=== PATIENT | male | born 1960 | race Caucasian/White ===

== ENCOUNTER 2019-09-16 08:36 | Inpatient (IN) | payer BC ==
[~2019-09-16] VITALS: Ht 167.6 cm; Wt 78.5 kg
[2019-09-16 08:42] VITALS: Ht 167.6 cm; Wt 78.5 kg
--- NOTE | 2019-09-16 08:47 | NUR ---
AOX4, SPEECH CLEAR AND APPROP. BREATHING E/U. RESTING IN BED, NAD. AT BEDSIDE. C/O DIARRHEA X 2 WEEKS. REPORTS HAVING VISITED [place] 1 WEEK AGO WELL. RECEIVED IM CEFTRIAXONE AND RECEIVED AN ORAL ABX (TREDA) WHICH HE HAS BEEN TAKING FOR 3 DAYS, LAST DOSE THIS MORNING AT 6AM. ALSO C/O 8/10 [place] LLQ PAIN TO PALPATION WORSENING X 3 DAYS. DENIES COLONOSCOPY IN LAST 10 YEARS, REPORTS STRONG HX OF COLON CA. DENIES GI BLEED. REPORTS SOME PAIN WITH BM.
--- NOTE | 2019-09-16 09:44 | NUR ---
20 GA IV PLACED TO L AC. 1L NS BOLUS INFUSING. MEDICATED PER ORDERS.
[2019-09-16 09:47] LABS: BASOPHIL % 0.5 % (0-2); PLATELET COUNT 268 x10^3mcL (130-400); RED CELL DISTRIBUTION WIDTH 12.4 % (11.5-14.5)
--- NOTE | 2019-09-16 09:53 | NUR ---
EN ROUTE TO CT.
--- NOTE | 2019-09-16 10:05 | NUR ---
BACK FROM CT.
[2019-09-16 10:35] LABS: CALCIUM 8.1 mg/dL (8.5-10.1); CARBON DIOXIDE 28.6 mmol/L (21-32); CHLORIDE SERUM 100 mmol/L (98-107); GFR1 > 60 mL/min; GLUCOSE SERUM 86 mg/dL (74-106); POTASSIUM SERUM 4.1 mmol/L (3.5-5.1); SODIUM SERUM 138 mmol/L (136-145)
[2019-09-16 10:38] LABS: ALBUMIN 3.4 g/dL (3.4-5.0); ALKALINE PHOSPHATASE 80 U/L (46-116); ALT/SGPT 35 U/L (16-63); AMYLASE 57 U/L (25-115); AST/SGOT 24 U/L (15-37); BILIRUBIN TOTAL 0.4 mg/dL (0.20-1.00); LIPASE 162 IU/L (73-393); TOTAL PROTEIN, SERUM 6.5 g/dL (6.4-8.2)
--- NOTE | 2019-09-16 11:45 | NUR ---
, ANGEL, REQUESTING THAT GI CONTACT HER WITH UPDATES AFTER SEEING PT.
--- NOTE | 2019-09-16 11:55 | NUR ---
RESTING COMFORTABLY IN BED AT THIS TIME.
--- NOTE | 2019-09-16 14:06 | NUR ---
I CALLED REPORT TO TONY SHE IS THE ACCEPTING NURSE UPSTAIRS, JERMAIN WILL TAKE PT UPSTAIRS VIA [facility]. PT IS A/AX4
--- NOTE | 2019-09-16 14:20 | NUR ---
RECEIVED PATIENT FROM ED AT 1402. PATIENT IS ALERT AND ORIENTED X4. NO ACUTE RESPIRATORY DISTRESS NOTED. NO COMPLAINTS OF CHEST PAIN. LOWER LEFT QUADRANT PAIN WHEN PRESSED OR PALPATED. NO SKIN ISSUES OR WOUNDS NOTED. IV INTACT AND PATENT TO LEFT AC. RADIAL AND PEDAL PULSES ARE EQUAL AND REGULAR. NO EDEMA NOTED. PATIENT IS COMFORTABLE. CALL LIGHT WITHIN REACH. ENCOURAGED TO URINATE IN THE URINAL FOR URINE CULTURE, WELL OBTAIN STOOL SAMPLE FOR LAB CULTURE. WILL CONTINUE TO MONITOR.
--- NOTE | 2019-09-16 15:15 | NUR ---
RECEIVED PATIENT WITH INTERMITTANT PAIN OT EH ABDOMEN. PATIENT HAS HAD DIARRHEA FOR ABOUT A MONTH ONAD OR OFF. TOLERATED OOB AND NO FEVER NOTED. THE LULY SOUND ARE ACTIVE AND PATEITN HAS CLEAR BUT DIMINIHSED BREATH SOUNDS. PATIEN HAS BEEN WITH VITALS STABLE AT 97.7, 56, 17, 111/75, 97 ON ROOM AIR. AT THIS TIME HE HAS NO ACUTE PAIN. HE RECEIVED BOLUS IN THE ER AND AN ORDER FOR TORDOL 30MG IV FOR PAIN.
[2019-09-16 15:57] VITALS: BP 111/75
--- NOTE | 2019-09-16 17:06 | NUR ---
PATIENT STATED HEADACHE AT THE BACK OF HEAD 7/10 PAIN. REQUESTED PAIN MEDICATION. TORADOL 15MG IVP GIVEN. WILL REASSESS PATIENT IN 30 MINUTES.
--- NOTE | 2019-09-16 17:11 | NUR ---
PATIENT IS REQUESINT FLU VACINE. HE DOES NOT MEET CRITERIA FO THE PNEUMOVAX. PATIENT HAS NOW COMPLAINED OF HEADACHE AND OFFERED TORADOL. LUNGS ARE CLEAR AND PATIENT DENIES ANY REDNESS TO THE PENILE AREA. PATIENT HAS BEEM AMBULATORT AND HE HAS BEEN STARTED ON BOWEL PREP ORDERED. WILL MONITOR FOR OUT PUT.
[2019-09-16 17:18] VITALS: BP 108/60
--- NOTE | 2019-09-16 17:49 | NUR ---
REASSESSED PATIENT FOR HEADACHE. PATIENT STATED MUCH RELIEF OF HEADACHE FROM 7/10 TO 4/10 PAIN. PAIN MEDICATION REPORTED EFFECTIVE. PATIENT IS SEEN TALKING WITH . PC TECHNICIAN IN THE ROOM. ENDOSCOPY AND COLONOSCOPY ORDERED FOR PATIENT. INFLUENZA VACCINE GIVEN TO LEFT ARM AT 1745, EDUCATED PATIENT ON POSSIBLE SIGN AND SYMPTOMS OF OBTAINING THE VACCINE. PATIENT IN NO ACUTE RESPIRATORY DISTRESS AT THE MOMENT. IV NORMAL SALINE FLUSHING WELL TO LEFT AC. PATIENT IS CURRENTLY EATING DINNER ON CLEAR LIQUID DIET. WILL CONTINUE TO MONITOR.
[2019-09-16 19:12] LABS: microscopic required? YES; urine erythrocyte TRACE (NEGATIVE)
[2019-09-16 19:19] LABS: AMPHETAMINE QUAL UR NONE DETECTED (See below)
[2019-09-16 20:10] VITALS: BP 109/70
--- NOTE | 2019-09-16 20:43 | NUR ---
Awake and verbally responsive. No respiratory distress noted on room air. Denies pain at this time. Denies n/v. Bowel prep in progress, had bm x1 per pt. Advised to call nurse to check on stool. For egd/colonoscopy in am. Family member visiting. Will cont.to monitor. Call light within reach.
--- NOTE | 2019-09-17 03:59 | NUR ---
Afebrile. No significant change in condition noted. Pain controlled. Having watery yellow stools. For EGD /colonoscopy today.
[2019-09-17 04:24] VITALS: BP 110/69
[2019-09-17 06:28] LABS: CALCIUM 8.2 mg/dL (8.5-10.1); CHLORIDE SERUM 109 mmol/L (98-107); CREATININE SERUM 0.8 mg/dL (0.7-1.3); GFR1 > 60 mL/min; GLUCOSE SERUM 93 mg/dL (74-106); POTASSIUM SERUM 4.5 mmol/L (3.5-5.1); SODIUM SERUM 143 mmol/L (136-145)
[2019-09-17 06:47] LABS: BASOPHIL % 0.5 % (0-2); PLATELET COUNT 261 x10^3mcL (130-400)
--- NOTE | 2019-09-17 07:30 | NUR ---
RECIEVED PATIENT SLEEPING ON ARRIVAL. PATIENT HAD BEEN GIVEN THE BOWEL PREP AND RECEIVED CHEST XRAY AND EKG AND PT AND PTT. PATIENT IS NPO FOR THE EGD AND COLONOSCOPY TODAY. HE HAS TOLERATED THE PREP AND IS WITH CLEAR YELLOW OUTPUT. THE CHECKLIST WAS COMPLETED AND VITALS STABLE. NO COMPLAINTS OF PAIN AT THIS TIME. LUNGS ARE CLEAR AND BOWEL SOUNDS ACTIVE. PATIENT HAS IV ACCESS AND CONTINEUD ON FLUIDS ORDERED. PATIENT HAS VITALS AT THIS ITIME AT 97.3, 52, 20, 110/69, 97% ON ROOM AIR. PATIENT AHS NOTED BACTERIA IN THE URINE AND HAS CA AT 8.2, AND CHLORIDE AT 109. C DIFF STOOL WAS SENT BUT BOTH THIS LAB AND MRSA IS PENDING. WILL CONTINUE TO MONITOR INDICATED.
--- NOTE | 2019-09-17 08:00 | NUR ---
PATIENT HAS BEEN TAKEN TO GI LAB. CONSENT AND CHECKLIST COMPLETED AND PATIENT IS CLEAR OF STOOL WITH THE OUTPUT IS CLEAR AND YELLOW. PATIENT COMPLETED THE PREP AND REPORT GIVEN TO THE GI LAB. CONSENT FOR STUDENT TO FOLLOW INDICATED. PATIENT DOWN FOR PROCEDURE AT AROUND 815. AWAITING ARRIVAL BACK TOT [facility].
[2019-09-17 08:32] VITALS: BP 113/73
--- NOTE | 2019-09-17 09:30 | NUR ---
RECIEVED REPORT ON PATIENT WHO WILL BE RETURNING TO HE FLOOR SHORTLY. THE PATIENT AHS DIVERTICULITIS AND HAS HEMORRAGIC GASTRITIS. CLOVE TEST IS PENDING. PATIENT TOLERATED THE PROCEUDRE WELL PER REPORT AND WILL BE RETURNING TO THE FLOOR SHORTLY.
--- NOTE | 2019-09-17 10:00 | NUR ---
PATIENT BACK FROM GI LAB AND TOLERATED TRANSFER WELL AND NOW IN THE RESTROOM.
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
--- NOTE | 2019-09-17 11:30 | NUR ---
PATIENT BACK FROM GI AND TOLERATED WELL. RECEIVED REPORT ON FINDINGS. PATIENT OFFEREC THE DIET AT BEDSIDE AND ASISTED OOB TO THE RESTROOM AND BACK. PATIENT SLEEPING AND WENT QUICKLY TO SLEEP AND NO DISTRESS AT THIS TIME.
--- NOTE | 2019-09-17 16:37 | NUR ---
PATIENT FAMILY AT BEDSIDE AND EXPLAINED THE PATIENT ABOUT THE PROCEDURE AND FINDINGS. PATIENT IV IS WITH SWELLING AND REMOVED AND RESTARTED TO THE OPPOSING ARM. PATIENT GIVEN ORAL LEVQUIN AND FLAGYL AND WILL MONITOR FOR ANY ADVERSE REACTION.
[2019-09-17 17:25] VITALS: BP 105/65
--- NOTE | 2019-09-17 17:39 | NUR ---
GAVE PRILOSEC ORDERED. PATIENT TOLERATED DIET AND NO NAUSEA OR ABDOMINAL PAIN AT THIS TIME.
--- NOTE | 2019-09-17 19:40 | NUR ---
RECEIVED PT IN BED AWAKE, ALERT,ORIENTED X4. NO SOB ON ROOM AIR. BOWEL SOUNDS ACTIVE. PT STATED ABDL PAIN IS MINIMAL AT THIS TIME. NO C/O N/V. W/ IVF D5NS AT 70 CC/HR VIA RT UPPER ARM. CALL LIGHT W/IN REACH.
[2019-09-17 21:53] VITALS: BP 106/64
--- NOTE | 2019-09-18 05:05 | NUR ---
PT SLEPT AT LONG INTERVALS. HE HAD NO C/O ABDL PAIN. PT STATED HE HAD DIARRHEA X4 DURING THE NIGHT. NO N/V. IVF D5NS INFUSING WELL AT 70 CC/HR VIA IV TO RT UPPER ARM.
[2019-09-18 06:13] VITALS: BP 104/61
[2019-09-18 07:07] LABS: BASOPHIL % 0.7 % (0-2); PLATELET COUNT 255 x10^3mcL (130-400); RED CELL DISTRIBUTION WIDTH 12.5 % (11.5-14.5)
--- NOTE | 2019-09-18 07:30 | NUR ---
PT IS AAOX4. NORMAL S1S2 NOTED. IV CATH TO HECTRO PATENT WITH FLUIDS RUNNING. SITE WNL. NO S/S OF INFECTION OR INFILTRATION. PT DENIES PAIN AND DISCOMFORT. BED IN LOW POSITION. CALL LIGHT WITHIN REACH.
[2019-09-18 08:05] LABS: CALCIUM 7.8 mg/dL (8.5-10.1); CARBON DIOXIDE 25.9 mmol/L (21-32); CHLORIDE SERUM 108 mmol/L (98-107); CREATININE SERUM 0.9 mg/dL (0.7-1.3); GFR1 > 60 mL/min; GLUCOSE SERUM 83 mg/dL (74-106); POTASSIUM SERUM 3.9 mmol/L (3.5-5.1); SODIUM SERUM 143 mmol/L (136-145)
--- NOTE | 2019-09-18 08:10 | NUR ---
RECEIVED REPORT FROM LAB PT'S K+= 2.9, WBC = 30.6, PLT 1120. PAGED DR. GRIMALDO, AWAITING CALL BACK.
--- NOTE | 2019-09-18 08:25 | NUR ---
ASHLEY CURIEL NP MET WITH PT AND DISCUSSED POC. PT HAS GASTROENTERITIS AND DIVERTICULOSIS. PT WILL RECEIVE EDUCATION ON BOTH DX. AWATING CLEARANCE FROM DR. GORDON THEN PT MAY GO HOME TODAY. PT AGREED WITH POC.
[2019-09-18 08:33] VITALS: BP 115/71
--- NOTE | 2019-09-18 09:38 | NUR ---
ROUTINE MED GIVEN AND TOLERATED WELL. PT GIVEN EDUCATION ON METAMUCIL AND THE BENEFITS OF A HIGH FIBER DIET. PT VERBALIZED UNDERSTANDING. PT DENIES PAIN AT THIS TIME. RESP EVEN AND UNLABORED. NO DISTRESS NOTED. CALL LIGHT WITHIN REACH.
[2019-09-18] MEDS ORDERED: GOOD SENSE OMEP20 MG PO (09:59)
[2019-09-18] MEDS ORDERED: FLA500 PO (10:00)
[2019-09-18] MEDS ORDERED: LEVOFLOXACIN500 M1 PO (10:01)
[2019-09-18 10:58] VITALS: BP 115/71
--- NOTE | 2019-09-18 13:43 | NUR ---
SCHEDULED MEDS GIVEN AND TOLERATED WELL. RESP EVEN AND UNLABORED. PT DENIES PAIN. DAUGHTER AT BEDSIDE. CALL LIGHT WITHIN REACH.
[2019-09-18] MEDS ORDERED: METAMUCIL FIBE3.4 GM PO ×2 (14:24→14:31)
[2019-09-18 14:45] VITALS: BP 115/71
--- NOTE | 2019-09-18 15:15 | NUR ---
PT DISCHARGED TO HOME IN NO DISTRESS. D/C INSTRUCTIONS REVIEWED. ALL FORMS SIGNED. NEW MEDICATIONS REVIEWED WITH INDICATIONS AND S/E EXPLAINED. RX GIVEN TO PT. IV CATH REMOVED FROM HECTOR. SITE WNL, COVERED WITH CDI GAUZE AND BANDAID. VS: T 98.5, HR 68, RR 20, B/P 115/71, O2 SAT 95%. PT DENIES PAIN UPON DISCHARGE. ALL PERSONAL BELONGINGS TAKEN HOME.
== END 2019-09-18 15:15 | disposition home or self-care (01) | DRG 391 ==
LOC: ED 08:36 → MU 13:19
PROVIDERS: Emergency Medicine; Internal Medicine Gastroenterology; ADMIT Internal Medicine
PROC: 0DB68ZX Excision of Stomach, Via Natural or Artificial Opening Endoscopic, Diagnostic (ICD-10-PCS; principal; 2019-09-17 08:00)
PROC: 0DJD8ZZ Inspection of Lower Intestinal Tract, Via Natural or Artificial Opening Endoscopic (ICD-10-PCS; 2019-09-17 08:00)
DX: K22.2 Esophageal obstruction (principal); K29.71 Gastritis, unspecified, with bleeding; K57.32 Diverticulitis of large intestine without perforation or abscess without bleeding; B96.81 Helicobacter pylori [H. pylori] as the cause of diseases classified elsewhere; K52.9 Noninfective gastroenteritis and colitis, unspecified; Z23 Encounter for immunization
CPT/HCPCS: 43235; 45378; 90658; C9113; G0378; J1200; J1610; J1885; J2250; J2310; J3010; J3490; J7030; J7042; Q0092

== ENCOUNTER 2020-11-28 20:09 | Emergency (ER) | payer BC, SELFPAY ==
[~2020-11-28] VITALS: Ht 167.6 cm; Wt 74.8 kg
[~2020-11-28 20:09] MED LIST: FLA500 PO; GOOD SENSE OMEP20 MG PO; LEVOFLOXACIN500 M1 PO; METAMUCIL FIBE3.4 GM PO
[2020-11-28 20:12] VITALS: Ht 167.6 cm; Wt 74.8 kg
[2020-11-28 23:45] VITALS: BP 128/6
== END 2020-11-28 23:45 | disposition home or self-care (01) ==
LOC: ED 20:09
DX: U07.1 COVID-19 (principal); J12.89 Other viral pneumonia
CPT/HCPCS: 36600; U0003